=== PATIENT | female | born 1975 | race Caucasian/White ===

== ENCOUNTER 2018-04-06 09:08 | Emergency (ER) | payer BC, OTHER ==
[2018-04-06 09:26] VITALS: BP 121/74
[2018-04-06] MEDS ORDERED: Ketorolac INJ* 30 MG/ML 1 ML VIAL IM ONE (09:34)
[2018-04-06] MEDS ORDERED: oxyCODONE/Acetamin 5/325 MG* TAB PO ONE (09:35)
[2018-04-06] MEDS ORDERED: HYDROcodone/ACETAMIN 5-325 MG* 1 TAB PO ONE (09:41)
--- NOTE | 2018-04-06 09:41 | UC ---
Back Pain HPI - HPI Summary HPI Summary: 42 year old female with history of asthma here with mid-back pain. Patient has been lifting heavy objects at work and reports pain since then. Denies any fall or injury. No other complaints. - History of Current Complaint Chief Complaint: UCBackPain Stated Complaint: BACK MUSCLE SPASMS Time Seen by Provider: 04/06/18 09:20 Onset/Duration: Sudden Onset Timing: Constant Pain Intensity: 5 Character: Throbbing, Spasmodic, Stiffness Aggravating Factor(s): Movement, Bending Alleviating Factor(s): Rest Associated Signs And Symptoms: Positive: Negative - Allergies/Home Medications Allergies/Adverse Reactions: Allergies Allergy/AdvReac Type Severity Reaction Status Date / Time Penicillins Allergy Unknown Verified 04/06/18 09:21 Reaction Details Home Medications: Home Medications Cyclobenzaprine TAB* [Flexeril 10 MG TAB*] 10 mg PO TID PRN 04/06/18 [History Confirmed 04/06/18] Ibuprofen TAB* [Motrin TAB* 400 MG] 400 mg PO Q6H PRN 04/06/18 [History Confirmed 04/06/18] PMH/Surg Hx/FS Hx/Imm Hx Previously Healthy: No - Surgical History Surgical History: Yes Surgery Procedure, Year, and Place: Hysterectomy, Colycystectomy - Social History Alcohol Use: None Substance Use Type: Marijuana Smoking Status (MU): Current Every Day Smoker Type: Cigarettes Review of Systems Constitutional: Negative Musculoskeletal: Decreased ROM All Other Systems Reviewed And Are Negative: Yes Physical Exam Triage Information Reviewed: Yes Vital Signs: Initial Vital Signs Temp 37.0 C 04/06/18 09:22 Pulse 86 04/06/18 09:22 Resp 14 04/06/18 09:22 BP 121/74 04/06/18 09:22 Pulse Ox 98 04/06/18 09:22 Vital Signs Reviewed: Yes Neck: Positive: Nontender, No Lymphadenopathy - Paraspinal muscel tenderness over t7-t8 Sensory exam intact. Negative: Nuchal Rigidity Musculoskeletal Exam: Normal Neurological Exam: Normal Psychological Exam: Normal Skin Exam: Normal Back Pain Course/Dx - Differential Dx/Diagnosis Differential Diagnosis/HQI/PQRI: Strain, Sprain Provider Diagnoses: Muscle spasm. Instructed patient to follow up with PMD. Will send with RX for NSAID and Percocet Discharge - Sign-Out/Discharge Documenting (check all that apply): Discharge/Admit/Transfer - Discharge Plan Condition: Good Disposition: HOME Patient Education Materials: Muscle Spasm (ED) Forms: *Work Release Referrals: Kaveh Brown MD [Primary Care Provider] - Additional Instructions: If your symptoms do not improve, please follow up with your primary care doctor. - Billing Disposition and Condition Condition: GOOD Disposition: HOME
== END 2018-04-06 10:00 | disposition home or self-care (01) ==
LOC: UCEAST 09:08
DX: M62.830 Muscle spasm of back (principal); Z88.0 Allergy status to penicillin; Z90.710 Acquired absence of both cervix and uterus; F17.210 Nicotine dependence, cigarettes, uncomplicated
CPT/HCPCS: 96372; 99202; A9270-GY; G0463; J1885

== ENCOUNTER 2018-08-07 15:34 | Emergency (ER) | payer OTHER ==
[2018-08-07 16:02] VITALS: BP 124/82
--- NOTE | 2018-08-07 16:38 | UC ---
Respiratory Complaint HPI - HPI Summary HPI Summary: 42-year-old woman comes in to clinic today with upper respiratory congestion and cough and wheezing. This been going on for 5 more days. The patient is a smoker. She has chest congestion. She has chills. She's tried Mucinex without any improvement. The albuterol is not helping very much. She feels the illness has settled into her chest. - History of Current Complaint Chief Complaint: UCRespiratory Stated Complaint: COUGH, CONGESTION Time Seen by Provider: 08/07/18 16:20 Pain Intensity: 6 - Allergies/Home Medications Allergies/Adverse Reactions: Allergies Allergy/AdvReac Type Severity Reaction Status Date / Time Penicillins Allergy Unknown Verified 08/07/18 16:02 Reaction Details Home Medications: Home Medications Acetaminophen [APAP] 975 mg PO 08/07/18 [History] Albuterol HFA INHALER* [Ventolin HFA Inhaler*] 1 puff INH Q4H PRN 08/07/18 [ History Confirmed 08/07/18] Diphenhydram/PE/Dm/Acetamin/GG [Mucinex Fast-Max Day Time] 1 mis PO 08/07/18 [ History] PMH/Surg Hx/FS Hx/Imm Hx - Additional Past Medical History Additional PMH: CHRON'S Respiratory History: Asthma - Surgical History Surgical History: Yes Surgery Procedure, Year, and Place: Hysterectomy, Colycystectomy - Family History Known Family History: Positive: Diabetes Family History: ASTHMA - Social History Alcohol Use: None Substance Use Type: Marijuana Substance Use Comment - Amount & Last Used: daily Smoking Status (MU): Light Every Day Tobacco Smoker Type: Cigarettes Review of Systems Constitutional: Chills Skin: Negative Eyes: Negative ENT: Negative, Sore Throat, Nasal Discharge, Sinus Congestion Respiratory: Shortness Of Breath, Cough Cardiovascular: Negative Gastrointestinal: Negative Motor: Negative Neurovascular: Negative Musculoskeletal: Negative Neurological: Negative Psychological: Negative Is Patient Immunocompromised?: No All Other Systems Reviewed And Are Negative: Yes Physical Exam Triage Information Reviewed: Yes Appearance: No Pain Distress, Well-Nourished, Ill-Appearing - MILD Vital Signs: Initial Vital Signs Temp 98.4 F 08/07/18 15:58 Pulse 97 08/07/18 15:58 Resp 18 08/07/18 15:58 BP 124/82 08/07/18 15:58 Pulse Ox 97 08/07/18 15:58 Vital Signs Reviewed: Yes Eye Exam: Normal Eyes: Positive: Conjunctiva Clear ENT: Positive: Nasal congestion, Nasal drainage, TMs normal, Hoarse voice Neck exam: Normal Neck: Positive: Supple Respiratory: Positive: No respiratory distress, Wheezing Cardiovascular: Positive: RRR Musculoskeletal Exam: Normal Musculoskeletal: Positive: Strength Intact, ROM Intact, No Edema Neurological Exam: Normal Neurological: Positive: Alert, Muscle Tone Normal Psychological Exam: Normal Psychological: Positive: Age Appropriate Behavior Skin Exam: Normal UC Diagnostic Evaluation - Laboratory O2 Sat by Pulse Oximetry: 97 Respiratory Course/Dx - Course Course Of Treatment: DISCUSSED VIRAL VERSES BACTERIAL INFECTION AND THE ROLE OF ANTIBIOTICS. THE PATIENT WISHES TO BE ON ANTIBIOTICS AT THIS TIME. Patient declined a prescription for steroids at this time. - Differential Dx/Diagnosis Provider Diagnoses: BRONCHITIS. ASTHMA Discharge - Sign-Out/Discharge Documenting (check all that apply): Patient Departure All imaging exams completed and their final reports reviewed: No Studies - Discharge Plan Condition: Stable Disposition: HOME Prescriptions: Azithromyxin ALEX (NF) [Z-Alex (Zithromax) 250 mg tabs #6] 2 tab PO .TODAY, THEN 1 DAILY #6 tab Patient Education Materials: Acute Bronchitis (ED), Asthma (ED) Forms: *Work Release Referrals: Kaveh Brown MD [Primary Care Provider] - Additional Instructions: FOLLOW UP WITH YOUR DOCTOR. GET RECHECKED FOR ANY WORSENING OF YOUR CONDITION OR QUESTIONS OR CONCERNS. - Billing Disposition and Condition Condition: STABLE Disposition: Home
== END 2018-08-07 16:46 | disposition home or self-care (01) ==
LOC: UCEAST 15:34
DX: J45.909 Unspecified asthma, uncomplicated (principal); Z88.0 Allergy status to penicillin; F17.210 Nicotine dependence, cigarettes, uncomplicated
CPT/HCPCS: 99211; G0463

== ENCOUNTER 2019-02-02 07:11 | Emergency (ER) | payer OTHER ==
[2019-02-02 07:26] VITALS: BP 120/71
--- NOTE | 2019-02-02 08:04 | UC ---
Abdominal Pain Female HPI - HPI Summary HPI Summary: PATIENT HAD A COLONOSCOPY DONE 1 MONTH AGO WHICH SHOWED SOME ULCERATIONS. SHE REPORTS BEING GIVEN A DIAGNOSIS OF ULCERATIVE COLITIS. SHE RECENTLY HAS BEEN HAVING AN INCREASE IN HER LOWER ABDOMINAL PAIN AND CRAMPING. DENIES ANY DIARRHEA OR BLOODY STOOLS. HAS BEEN TAKING MESALAMINE ONCE DAILY. NO DOCUMENTED FEVER. NO NAUSEA/VOMITING. CALLED HER GI SPECIALIST AND WAS ADVISED TO COME HERE THEY COULD NOT SCHEDULE HER FOR AN APPOINTMENT TODAY. SHE HAS A FOLLOW-UP APPOINTMENT IN 5 DAYS. - History of Current Complaint Chief Complaint: UCAbdominalPain Stated Complaint: ABD PAIN Time Seen by Provider: 02/02/19 07:43 Hx Obtained From: Patient Onset/Duration: Gradual Onset, Lasting Days, Still Present Timing: Constant Severity Initially: Moderate Severity Currently: Moderate Pain Intensity: 7 Pain Scale Used: 0-10 Numeric Location: Suprapubic Radiates: No Character: Cramping Aggravating Factor(s): Nothing Alleviating Factor(s): Nothing Associated Signs and Symptoms: Negative: Diaphoresis, Fever, Blood in Stool, Urinary Symptoms, Nausea, Vomiting, Diarrhea Allergies/Adverse Reactions: Allergies Allergy/AdvReac Type Severity Reaction Status Date / Time Penicillins Allergy Unknown Verified 02/02/19 07:27 Reaction Details Home Medications: Home Medications ALPRAZolam [Xanax] 0.25 mg PO DAILY PRN 02/02/19 [History Confirmed 02/02/19] L.acidoph,Paracasei, B.lactis [Probiotic] 2 each PO DAILY 02/02/19 [History Confirmed 02/02/19] Mesalamine [Apriso] 0.375 gm PO DAILY 02/02/19 [History Confirmed 02/02/19] PMH/Surg Hx/FS Hx/Imm Hx Respiratory History: Asthma Other GI/ History: ULCERATIVE COLITIS Neurological History: Migraine - Surgical History Surgical History: Yes Surgery Procedure, Year, and Place: Hysterectomy, Colecystectomy - Family History Known Family History: Positive: Diabetes Family History: ASTHMA - Social History Alcohol Use: None Substance Use Type: Marijuana Substance Use Comment - Amount & Last Used: daily Smoking Status (MU): Light Every Day Tobacco Smoker Type: Cigarettes Amount Used/How Often: less than a ppd Household Exposure Type: Cigarettes Review of Systems All Other Systems Reviewed And Are Negative: Yes Constitutional: Positive: Negative Skin: Positive: Negative Respiratory: Positive: Negative Cardiovascular: Positive: Negative Gastrointestinal: Positive: Abdominal Pain. Negative: Vomiting, Diarrhea, Nausea Genitourinary: Positive: Negative Physical Exam Triage Information Reviewed: Yes Appearance: Well-Appearing, No Pain Distress, Well-Nourished Vital Signs: Initial Vital Signs Temp 98.5 F 02/02/19 07:21 Pulse 75 02/02/19 07:21 Resp 18 02/02/19 07:21 BP 120/71 02/02/19 07:21 Pulse Ox 98 02/02/19 07:21 Vital Signs Reviewed: Yes Eyes: Positive: Conjunctiva Clear ENT: Positive: Hearing grossly normal Neck: Positive: Supple, Nontender, No Lymphadenopathy Respiratory Exam: Normal Cardiovascular Exam: Normal Abdomen Description: Positive: Soft, Other: - DIFFUSE MILD TENDERNESS. NO REBOUND OR RIGIDITY. Negative: CVA Tenderness (R), CVA Tenderness (L), Distended, Guarding Bowel Sounds: Positive: Present Musculoskeletal: Positive: No Edema Neurological: Positive: Alert Psychological: Positive: Age Appropriate Behavior Skin: Negative: Rashes Abd Pain Female Course/Dx - Course Course Of Treatment: PATIENT'S PAIN MAY BE DUE TO HER ULCERATIVE COLITIS. NO ACUTE FINDINGS ON EXAM TODAY THAT WOULD SUGGEST SHE REQUIRES ER EVALUATION PRESENTLY. ADVISED TO CONTINUE TAKING HER MESALAMINE. WILL GIVE ORAL PREDNISONE WHICH WILL HOPEFULLY CONTROL/REDUCE HER SYMPTOMS. SHE HAS GI FOLLOW-UP IN 5 DAYS AND CAN READDRESS HER TREATMENT AT THAT TIME. ADVISED TO GO TO THE ER WITHOUT FAIL IF HER SYMPTOMS CHANGE OR WORSEN. - Differential Dx/Diagnosis Provider Diagnosis: Lower abdominal pain Discharge - Sign-Out/Discharge Documenting (check all that apply): Patient Departure All imaging exams completed and their final reports reviewed: No Studies - Discharge Plan Condition: Stable Disposition: HOME Prescriptions: predniSONE TAB* [Deltasone TAB*] 50 mg PO DAILY #7 tab Patient Education Materials: Ulcerative Colitis (ED) Forms: *Work Release Referrals: Kaveh Brown MD [Primary Care Provider] - If Needed Additional Instructions: PREDNISONE 50 MG ONCE DAILY. 7 DAY SUPPLY PROVIDED. KEEP YOUR FOLLOW-UP APPOINTMENT WITH YOUR GI SPECIALIST IN 5 DAYS. IF SHE CHOOSES TO CONTINUE PREDNISONE TO TREAT YOUR FLARE YOU WILL LIKELY HAVE THE PREDNISONE EXTENDED FOR SOME TIME. BE AWARE THAT SHE ALSO MAY CHOOSE TO USE A DIFFERENT MEDICATION TO CONTROL YOUR ACUTE FLARE. HOPEFULLY THE PREDNISONE WILL IMPROVE YOUR SYMPTOMS ENOUGH TO GET YOU THROUGH UNTIL YOU SEE HER. GO TO THE ER WITHOUT FAIL IF YOU DEVELOP WORSENING PAIN, BLOODY STOOLS, FEVER OR ANY OTHER CONCERNING SYMPTOMS. - Billing Disposition and Condition Condition: STABLE Disposition: Home
== END 2019-02-02 08:00 | disposition home or self-care (01) ==
LOC: UCEAST 07:11
DX: R10.30 Lower abdominal pain, unspecified (principal); J45.909 Unspecified asthma, uncomplicated; K51.90 Ulcerative colitis, unspecified, without complications; G43.909 Migraine, unspecified, not intractable, without status migrainosus; Z88.0 Allergy status to penicillin
CPT/HCPCS: 99212; G0463